=== PATIENT | male | born 1985 | race Two or more races ===

== ENCOUNTER 2021-10-24 15:50 | Emergency (ER) | payer OTHER ==
[~2021-10-24] VITALS: Ht 175.3 cm; Wt 83.9 kg
[2021-10-24 15:50] VITALS: BP 142/86
[2021-10-24] MEDS ORDERED: CEPH500T PO (16:53)
[2021-10-24] MEDS ORDERED: CEPHALEXIN MONOHYDRATE 500 MG CAPSULE PO ONE (17:00)
--- NOTE | 2021-10-24 17:42 | NUR ---
Patient discharged in custody in stable condition. Written and verbal after care instructions given. Patient verbalizes understanding of instruction.
== END 2021-10-24 17:43 ==
LOC: ER 16:05
DX: L03.115 Cellulitis of right lower limb (principal)